=== PATIENT | female | born 1980 | race Caucasian/White ===

== ENCOUNTER 2016-09-18 11:52 | Emergency (ER) | payer MEDICARE ==
[~2016-09-18] VITALS: Ht 165.1 cm; Wt 117.5 kg
--- NOTE | ~2016-09-18 | EKG ---
PATIENT: MARTIN PORTER UNIT #: [id number] Ventricular Rate: 90 BPM Atrial Rate: 90 BPM P-R Interval: 134 ms QRS Duration: 96 ms Q-T Interval: 362 ms QTC Calculation(Bezet): 442 ms P [place]: 52 degrees Calculated R [place]: 54 degrees Calculated T [place]: 16 degrees Diagnosis Line: Normal sinus rhythm Diagnosis Line: Normal ECG Diagnosis Line: No previous ECGs available Diagnosis Line: Confirmed by ARSALAN RESENDIZ MD ([id number]) on Diagnosis Line: 09/18/2016 2:47:46 PM INTERPRETING MD: ASTRID MCDOWELL
--- NOTE | ~2016-09-18 | CR72 ---
[facility] A Service of [facility] RADIOLOGY TEXT RESULTS PATIENT: MARTIN PORTER LOCATION: [facility] : 80 UNIT #: [id number] AGE: [address]: Reese Aldrich MD SEX: F ORDER DR: [id number] [facility] [address] [place], [place] [address] [id number] E MR#: [id number] Acc #: [id number] NAME: MARTIN PORTER : 1980 SEX: F STUDY DATE/TIME: 09/18/2016 12:20 UNIT: [facility] ROOM: STUDY DESCRIPTION: CR Chest Single View Portable Attending Physician: Reese Aldrich M.D. Ordering Physician: Reese Aldrich M.D. Primary Care Physician: Jennifer Arizmendi M.D. MEDICAL IMAGING REPORT This report is preliminary unless electronic signature is present EXAM Chest, portable; 09/18/2016, 1220 hours. CLINICAL HISTORY 35-year-old woman complaining of 1-day history of left-sided chest pain. History of hypertension. COMPARISON None. FINDINGS Portable upright chest demonstrates low lung volumes. The cardiac size is normal. Aortic contour is normal. There is perihilar and basilar vascular crowding and generalized increase in interstitial markings felt likely due to the low lung volumes. No definite edema, effusion or pneumothorax. IMPRESSION 1. Slightly low lung volumes are normal heart size and normal aortic contours. 2. There is mild perihilar and basilar vascular crowding with interstitial prominence felt likely due to the lower lung volumes. No definite pneumonia, edema or effusion. Dictated by... Shiloh Varghese M.D. THIS IS AN ELECTRONICALLY VERIFIED REPORT Shiloh Varghese M.D. at 09/18/2016 9:21 PM VIKTOR/phong TD: 09/18/2016 17:38 [facility] A Service of [facility] RADIOLOGY TEXT RESULTS PATIENT: MARTIN PORTER [id number] [birth year] UNIT #: [id number] AGE: [address]: Reese Aldrich MD SEX: F ORDER DR: JOB #: [id number] MEDICAL IMAGING REPORT Page 1 of 1 COPY
[~2016-09-18 11:52] MED LIST: ALLEGRA-D1 TAB.SR1 PO; ALPRAZOLAM PO; COLACE PO; DARVOCET-N 1001 TAB PO; DEPO-PROVER150 MG/ML INJ; GLYCOLAX PO; HCTZ PO; LAMICTAL PO; LASIX PO; NASONEX17 GM; NEXIUM PO; SENNA S TABLET1 TAB PO; SEROQUEL PO; UROCIT K PO; ZANTAC PO; ZITHROMAX PO; [UNRECOGNIZED DRUG - OTHER] INJ
[2016-09-18 12:32] LABS: BASOPHIL# 0.1 X10e3 (0-0.3); BASOPHIL% 0.7 % (0-2.5); DIFF IND YES; EOSINOPHIL# 0.2 X10e3 (0-0.7); EOSINOPHIL% 1.1 % (0.0-7.0); HEMATOCRIT 43.9 % (35.0-45.0); HEMOGLOBIN 14.8 gm/dL (12.0-16.0); LYMPHOCYTE# 3.4 X10e3 (1.0-3.5); MEAN CELL VOLUME 93.1 FL (83-96); MEAN CORPUSCULAR HEMOGLOBIN 31.4 PG (28-34); MEAN CORPUSCULAR HGB CONC 33.7 g/dL (30-36); MEAN PLATELET VOLUME 7.2 FL (6.5-11.5); NEUTROPHIL# 12.2 X10e3 (1.5-7.1); NEUTROPHIL% 72.2 % (40-75); PLATELET COUNT 322 X10e3 (140-420); RED BLOOD COUNT 4.72 X10e (3.90-5.30); RED CELL DISTRIBUTION WIDTH 13.8 % (11.0-15.5); WHITE BLOOD COUNT 16.8 X10e3 (4.0-10.5)
[2016-09-18 12:43] LABS: INR 0.9; PARTIAL THROMBOPLASTIN TIME 28.5 SECONDS (23.5-31.3); PROTHROMBIN TIME (PATIENT) 10.2 SECONDS (10.0-11.7)
[2016-09-18 12:56] LABS: ALBUMIN SERUM 3.9 g/dL (3.5-5.0); ALKALINE PHOSPHATASE 88 U/L (32-92); ALT (SGPT) 28 U/L (10-40); AST (SGOT) 20 U/L (10-42); BILIRUBIN,TOTAL 0.1 mg/dL (0.2-2.0); BLOOD UREA NITROGEN 8 mg/dL (9-23); CALCIUM SERUM 9.1 mg/dL (8.4-10.2); CARBON DIOXIDE 25 mmol/L (22-31); CHLORIDE 106 mmol/L (100-111); CREATININE SERUM 0.8 mg/dL (0.6-1.4); GLOM FILT RATE Estimated 95.6 mL/min (>60); GLUCOSE FASTING 126 mg/dL (70-110); POTASSIUM 3.8 mmol/L (3.5-5.1); PROTEIN TOTAL SERUM 6.9 g/dL (6.0-8.3); SODIUM 138 mmol/L (135-145)
[2016-09-18 13:01] LABS: BILIRUBIN, DIRECT <0.1 mg/dL (0.0-0.2)
[2016-09-18 13:04] LABS: PLATELET ESTIMATE NORMAL (NORMAL)
[2016-09-18 14:02] LABS: POC - CKMB 1.5 ng/mL (0.0-7.9); POC - TROPONIN <0.05 ng/mL (<=0.05)
[2016-09-18 14:20] LABS: POC - CKMB 1.4 ng/mL (0.0-7.9); POC - TROPONIN <0.05 ng/mL (<=0.05)
== END 2016-09-18 14:37 | disposition home or self-care (01) ==
LOC: CED 11:52
PROVIDERS: Emergency Medicine
DX: R07.89 Other chest pain (principal); Z79.899 Other long term (current) drug therapy; Z88.0 Allergy status to penicillin
CPT/HCPCS: 36415; 71010; 80048; 80076; 82553; 84484; 85025; 85610; 85730; 93005; 96374; 99285; J1885